=== PATIENT | male | born 1950 | race Caucasian/White ===

== ENCOUNTER 2018-06-02 02:50 | Emergency (ER) | payer MEDICARE, OTHER, SELFPAY ==
[2018-06-02] VITALS (9 sets, daily range): BP systolic 96–158; BP diastolic 56–104; PULSE 76–125; RESP 10–22; TEMP 36.5; O2SAT 93–99; BMI 32.5
--- NOTE | 2018-06-02 02:59 | ED_ITS ---
HPI - General Adult General Chief complaint: Arrhythmia/Palpitations Stated complaint: hiccuping 48 hrs, stomach bloated, heartburn Time Seen by Provider: 06/02/18 02:58 Source: patient Mode of arrival: ambulatory Limitations: no limitations History of Present Illness HPI narrative: Patient is a 68-year-old male here for evaluation of 48 hr the hiccups. Patient states that they have been constant for the past 48 hr. Recently he started benzoate and Cetrizine for a cough. Denies any chest pain, denies any shortness of breath, denies any palpitations, does have some abdominal fullness. No fevers. Never had anything like this before. Related Data Home Medications Medication Instructions Recorded Confirmed benzonatate 100 mg PO TID PRN 06/02/18 06/02/18 cetirizine 10 mg PO DAILY 06/02/18 06/02/18 codeine-guaifenesin 10 ml PO Q4-6H PRN 06/02/18 06/02/18 lisinopril 5 mg PO DAILY 06/02/18 06/02/18 ranitidine HCl [Acid Control 150 mg PO BID 06/02/18 06/02/18 (ranitidine)] sildenafil [Viagra] 100 mg PO DAILY PRN 06/02/18 06/02/18 Previous Rx's Medication Instructions Recorded gabapentin 100 mg PO BID #30 cap 06/02/18 Allergies Allergy/AdvReac Type Severity Reaction Status Date / Time No Known Drug Allergies Allergy Verified 06/02/18 03:23 Review of Systems Constitutional Denies fatigue, Denies fever(s) and Denies headache(s) ENT Ears, Nose, Mouth, and Throat: Denies vertigo, Denies dizziness and Denies headache(s) Cardiovascular Denies chest pain and Denies dyspnea Respiratory Denies dyspnea Gastrointestinal Gastrointestinal: Reports bloating Comments: Hiccups Musculoskeletal Denies myalgias and Denies arthralgias Integumentary/Breasts Denies rash Neurologic Denies vertigo, Denies dizziness and Denies headache(s) Endocrine Denies fatigue Hematologic/Lymphatic Denies easy bleeding and Denies easy bruising Allergic/Immunologic Denies urticaria PFSH Medical History Gastroesophageal reflux disease (Acute) Social History Smoking Status: Never smoker Social History Smoking Status: Never smoker Exam Initial Vital Signs Initial Vital Signs: Vital Signs Temperature 97.7 F 06/02/18 03:07 Pulse Rate 115 H 06/02/18 03:07 Respiratory Rate 20 06/02/18 03:07 Blood Pressure 126/104 H 06/02/18 03:07 Pulse Oximetry 96 06/02/18 03:07 Const General: cooperative, healthy appearing, comfortable, well developed, well groomed and No acute distress Orientation: alert, awake and oriented x3 HENMT Head: normal to inspection and normocephalic Resp Effort & Inspection: normal respiratory effort Auscultation: clear to auscultation bilaterally Cardio Rate: tachycardic Rhythm: abnormal rhythm irregularly irregular and with ectopic beats Pulses: radial pulses present GI Inspection: non-distended Palpation: soft, No firm and No tender Skin Lesions: no lesions Rashes: no rashes Neuro General: alert, awake and oriented x3 Cognition: normal cognition Speech: speech normal Extrem General: normal to inspection and capillary refill normal Psych Appearance: grossly normal and well kempt Course Orders Ordered: ED Orders 06/02/18 03:05 EKG-12 Lead Stat 06/02/18 03:15 B Type Natriuretic Peptide Stat Complete Blood Count AUTO DIFF Stat Comprehensive Metabolic Panel Stat Lipase Stat Magnesium Stat Phosphorous Stat Troponin I Stat 06/02/18 03:46 CT abdomen pelvis w con Stat CT angio chest PE protocol Stat Discontinued Medications Aspirin (Aspirin Chew) 324 mg PO NOW ONE Stop: 06/02/18 04:13 Last Admin: 06/02/18 04:26 Dose: 324 mg Sodium Chloride (Normal Saline 0.9%) 1,000 mls @ 1,000 mls/hr IV BOLUS ONE Stop: 06/02/18 04:46 Last Admin: 06/02/18 03:54 Dose: 1,000 mls/hr Metoprolol Tartrate (Lopressor) 25 mg PO NOW ONE Stop: 06/02/18 03:37 Last Admin: 06/02/18 03:40 Dose: 25 mg Vital Signs - 8 hr 06/02/18 03:07 06/02/18 03:19 06/02/18 03:32 Temperature 97.7 F Pulse Rate 115 H 115 H 125 H Respiratory Rate 20 22 18 Blood Pressure 126/104 H Blood Pressure [Right Arm] 147/102 H 158/71 H Pulse Oximetry 96 93 99 06/02/18 04:10 06/02/18 04:30 Temperature Pulse Rate 99 H 94 H Respiratory Rate 17 10 L Blood Pressure Blood Pressure [Right Arm] 128/85 108/56 L Pulse Oximetry 95 97 Medical Decision Making Lab Data Lab results reviewed: Yes I reviewed the patient's lab results. Result diagrams: 06/02/18 03:15 06/02/18 03:15 Lab Results 06/02/18 06/02/18 06/02/18 Range/Units 03:15 03:15 03:15 WBC 3.1 L (4.5-11.0) X10^3/uL RBC 4.57 (4.5-5.9) X10^6/uL Hgb 14.2 (13.5-17.5) g/dL Hct 42.4 (41-53) % MCV 92.8 (80-100) fL MCH 31.1 (26-34) PG MCHC 33.5 (30-36) % RDW 13.6 (11.6-14.8) % Plt Count 75 L (150-400) X10^3/uL Neut % (Auto) 54.3 (50-75) % Lymph % (Auto) 26.2 (25-40) % Forest % (Auto) 17.8 H (3-14) % Eos % (Auto) 0.9 L (2-4) % Baso % (Auto) 0.8 (0-2) % Neut # (Auto) 1700 (5169-2490) /uL Lymph # (Auto) 800 L (2738-1892) /uL Forest # (Auto) 600 (0-900) /uL Eos # (Auto) 0 (0-450) /uL Baso # (Auto) 0 (0-100) /uL Sodium 132 L (137-145) mmol/L Potassium 4.0 (3.4-5.1) mmol/L Chloride 95 L (98-107) mmol/L Carbon Dioxide 27 (22-32) mmol/L BUN 19 (9-20) mg/dL Creatinine 1.00 (0.66-1.25) mg/dL Estimated GFR > 60.0 (>60) mL/min BUN/Creatinine Ratio 19.0 (6-22) Glucose 104 (80-110) mg/dL Calcium 8.5 (8.4-10.2) mg/dL Phosphorus 3.6 (2.3-3.7) mg/dL Magnesium 1.8 (1.6-2.3) mg/dL Total Bilirubin 0.6 (0.2-1.3) mg/dL AST 44 (17-59) IU/L ALT 33 (21-72) IU/L Alkaline Phosphatase 51 (38-126) U/L Troponin I 0.419 H* (0.01-0.034) ng/mL B-Natriuretic Peptide 809 H (<100) Total Protein 6.5 (6.3-8.2) g/dL Albumin 3.8 (3.5-5.0) g/dL Globulin 2.7 (1.7-4.1) g/dL Albumin/Globulin Ratio 1.4 (1.0-2.8) Lipase 31 (23-300) U/L Imaging Data CT scan - chest: Radiologist's impression: No pulmonary embolism. Mild cardiomegaly, small right pleural effusion intralobar septal thickening in the bases likely edema. Previous granulomatous disease. Prominent right hilar lymph nodes. CT scan - abdomen: Radiologist's impression: No acute abnormality. Stool-filled colon with descending and sigmoid diverticulosis ECG Data Attestation: I personally reviewed and interpreted this ECG as follows: Prior ECG tracings: not available for review Interpretation: Sinus tachycardia Ventricular rate of 107 PVCs and PACs with [address] depressions V5 MDM Narrative Medical decision making narrative: Patient without any other symptoms except for hiccups. Patient's EKG is sinus rhythm with 3 different morphologies that are unrelated to his hiccups. I do not think that these are artifact. Discussed the case with Dr. Roland with Cardiology who stated that my description of the EKG is more likely ectopy then ventricular tachycardia. His heart rate does vary between 100-120 when he has runs of these ectopy. He does have an elevated BNP and also a elevated troponin. He was given an aspirin. He is not clinically in heart failure. Electrolytes unremarkable. CT scan negative for pulmonary embolism or acute abdominal pathology. I do suspect that his hiccups are secondary to irritation of the phrenic nerve from a potential cardiac etiology. In the setting of the elevated troponin and elevated BNP I do have concerns for a potential coronary event. I discussed this with the patient. Informed him that secondary to his labs and his presentation that we need to transfer him to a facility that has a contracts law professor further evaluation and potential echo and potential cardiac catheterization and trending of his troponins. I did discuss with him my concern that he could be having a heart attack and that is what is causing his hiccups. Patient stated that he did not want to be transferred. He expressed understanding that he may be having a heart attack and that going home could potentially lead to worsening symptoms or even . I informed him that the care that he needed to not be given at this hospital so we could not admit him here. He stated that he did not want to be admitted anywhere. He is alert oriented x3. In my opinion has capacity to make decisions. Has a GCS of 15. I contacted the patient's primary doctor and informed him of the patient's decision. The primary doctor stated that the patient could call his office later today to schedule appointment in the next couple days. I instructed the patient to do this. Will also send him home on gabapentin to see if this does not help his hiccups although once again I have a high concern that this may be a cardiac etiology. Patient signed [employer] paperwork. Nursing staff was in the room for these discussions. Patient stated that he did not want to be transferred because he is closing on her house on Saturday and did not want to miss this. Discharge Plan Departure Patient Disposition: Left Against Medical Advice Clinical Impression: Non-ST elevated myocardial infarction, Hiccups Activity Restrictions/Additional Instructions: Despite our discussions here in the emergency department about the fact that I think you're hiccups are being caused by a problem with your heart and a high concern that you are having a heart attack you decided you did not want to be transferred to a facility capable of handling this. I was able to contact your primary doctor and please call them when the office opens today for follow-up in the next day or two. If you change of mind you can return to the emergency department at any point to continue the workup. Prescriptions: New gabapentin 100 mg capsule 100 mg PO BID Qty: 30 RF: 0 No Action cetirizine 10 mg Tablet 10 mg PO DAILY RF: 0 sildenafil [Viagra] 100 mg Tablet 100 mg PO DAILY PRN (Reason: Sexual Activity) RF: 0 benzonatate 100 mg Capsule 100 mg PO TID PRN (Reason: Cough) RF: 0 ranitidine HCl [Acid Control (ranitidine)] 150 mg Tablet 150 mg PO BID RF: 0 lisinopril 10 mg Tablet 5 mg PO DAILY RF: 0 codeine-guaifenesin 10-100 mg/5 mL Liquid 10 ml PO Q4-6H PRN (Reason: Cough) RF: 0 Referrals: Sahil Bowser MD [Primary Care Provider] - Stand Alone Forms: Against Medical Advice
[2018-06-02 03:26] LABS: Add Manual Diff / Slide Review NO; Basophils Absolute Auto 0 /uL (0-100); Basophils Percent Auto 0.8 % (0-2); Eosinophils Absolute Auto 0 /uL (0-450); Eosinophils Percent Auto 0.9 % (2-4); Hematocrit 42.4 % (41-53); Hemoglobin 14.2 g/dL (13.5-17.5); Lymphocytes Absolute Auto 800 /uL (1100-4500); Lymphocytes Percent Auto 26.2 % (25-40); Mean Corpuscular HGB Conc 33.5 % (30-36); Mean Corpuscular Hemoglobin 31.1 PG (26-34); Mean Corpuscular Volume 92.8 fL (80-100); Monocytes Absolute Auto 600 /uL (0-900); Monocytes Percent Auto 17.8 % (3-14); Neutrophils Absolute Auto 1700 /uL (1500-7000); Neutrophils Percent Auto 54.3 % (50-75); Red Blood Cell Count 4.57 X10^6/uL (4.5-5.9); Red Cell Distribution Width 13.6 % (11.6-14.8)
[2018-06-02 03:31] LABS: Platelet Count 75 X10^3/uL (150-400); White Blood Cell Count 3.1 X10^3/uL (4.5-11.0)
--- NOTE | 2018-06-02 03:35 | PC.NURSE ---
Pt with frequent ectopy on ECG. SR-ST with bigeminal PVC, frequent runs of PVC's >10 beats. Pt with stable BP, denies chest pain. Still hiccuping. Dr Elder aware.
[2018-06-02 03:37] LABS: Alanine Aminotransferase 33 IU/L (21-72); Albumin 3.8 g/dL (3.5-5.0); Albumin Globulin Ratio 1.4 (1.0-2.8); Alkaline Phosphatase 51 U/L (38-126); Aspartate Aminotransferase 44 IU/L (17-59); Bilirubin Total 0.6 mg/dL (0.2-1.3); Blood Urea Nitrogen 19 mg/dL (9-20); Calcium 8.5 mg/dL (8.4-10.2); Carbon Dioxide 27 mmol/L (22-32); Chloride 95 mmol/L (98-107); Estimated Glomerular Filt Rate > 60.0 mL/min (>60); Globulin 2.7 g/dL (1.7-4.1); Glucose 104 mg/dL (80-110); Lipase 31 U/L (23-300); Sodium 132 mmol/L (137-145); Total Protein 6.5 g/dL (6.3-8.2)
[2018-06-02 03:38] LABS: Magnesium 1.8 mg/dL (1.6-2.3); Phosphorous 3.6 mg/dL (2.3-3.7)
[2018-06-02] MEDS: METOPROLOL IR 25 MG TABLET PO (03:40)
--- NOTE | 2018-06-02 03:46 | DI.CT.S_ITS ---
PROCEDURE: CT ABDOMEN PELVIS W CON INDICATIONS: abdominal pain TECHNIQUE: After the administration of intravenous contrast, 5 mm thick sections acquired from the diaphragm to the symphysis. 5 mm coronal and sagittal reformats were acquired. For radiation dose reduction, the following was used: automated exposure control, adjustment of mA and/or kV according to patient size. COMPARISON: [facility], CT, CT ANGIO CHEST PE PROTOCOL, 06/02/2018, 3:49. FINDINGS: Image quality: There are motion artifacts. ABDOMEN: Lung bases: Small right pleural effusion. There is right basilar atelectasis. Heart size is normal. Solid organs: Liver is normal in size and enhancement. Gallbladder is normal. Biliary system is non dilated. Pancreas enhances normally. Spleen is normal in size and enhancement. No adrenal nodules. Kidneys demonstrate normal size and enhancement, without hydronephrosis. Peritoneum and bowel: There are numerous colonic diverticula. Bowel loops demonstrate normal wall thickness and caliber. No free fluid or air. Nodes and vessels: No retroperitoneal or mesenteric adenopathy by size criteria. Aorta and inferior vena cava are normal in size. Miscellaneous: No ventral hernias. PELVIS: Genitourinary: Bladder wall thickness is normal. Enlarged prostate. Miscellaneous: No inguinal hernias or adenopathy. Bones: No suspicious bony lesions. No vertebral body compression fractures. IMPRESSION: 1. Diverticulosis without acute diverticulitis. 2. Small right pleural effusion with right basilar atelectasis. 3. Enlarged prostate. No significant discrepancy with the snuff container inspector radiology preliminary report. Dictated by: Ramana Paulino M.D. on 06/02/2018 at 8:09 Approved by: Ramana Paulino M.D. on 06/02/2018 at 8:14
--- NOTE | 2018-06-02 03:46 | DI.CT.S_ITS ---
PROCEDURE: CT ANGIO CHEST PE PROTOCOL INDICATIONS: Chest pain, shortness of breath, tachycardia TECHNIQUE: After the administration of intravenous contrast, 2 mm thick sections acquired from the pulmonary apices to the posterior costophrenic angles. 3-dimensional maximum intensity projection (MIP) coronal and sagittal reformats were then acquired through the thorax. For radiation dose reduction, the following was used: automated exposure control, adjustment of mA and/or kV according to patient size. COMPARISON: [facility], CR, XR CHEST 2 VIEWS, 03/17/2018, 9:37. FINDINGS: Image quality: Excellent. Pulmonary arteries: Pulmonary arteries are normal in size, and demonstrate no intraluminal filling defects to suggest central pulmonary embolism. Lungs and pleura: There is a bleb or pneumatocele in the left lower. There is a calcified granuloma in the right upper lobe. Mild subpleural septal thickening. There is a small right pleural effusion and left basilar atelectasis. No focal consolidation. No pneumothorax. Central and peripheral airways are patent. Mediastinum: Heart size is mildly increased, without pericardial effusion. Mildly enlarged right hilar and mediastinal lymph nodes are noted. For example, a 1.8 cm right hilar lymph node is noted. There is a 1.1 cm particular lymph node. Thoracic aorta is normal in caliber and enhancement. Esophagus is normal in caliber, without hiatal hernia. Bones and chest wall: No suspicious bony lesions. Ribs and thoracic spine appear intact throughout. Thyroid gland is normal. No axillary or supraclavicular adenopathy. Abdomen: Visualized upper abdominal solid organs appear normal in the early arterial phase of enhancement. IMPRESSION: 1. No evidence for central pulmonary embolism. 2. Mild cardiomegaly. 3. Mild interstitial thickening and small right pleural effusion suggest mild pulmonary congestion. 3. A calcified granuloma in the right middle lobe. 4. Mild right hilar and mediastinal lymphadenopathy. This finding is nonspecific and may be secondary to infectious, inflammatory or neoplastic etiology. Recommend clinical correlation and follow up. No significant discrepancy with the cafeteria supervisor radiology preliminary report. Dictated by: Ramana Paulino M.D. on 06/02/2018 at 7:32 Approved by: Ramana Paulino M.D. on 06/02/2018 at 8:58
[2018-06-02 03:47] LABS: B Type Natriuretic Peptide 809 (<100)
[2018-06-02] MEDS: SODIUM CHLORIDE 0.9% 1,000 ML 1000 ML IV (03:54)
[2018-06-02 04:09] LABS: HEMOLYSIS 26 (0-50)
[2018-06-02 04:10] LABS: Troponin I 0.419 ng/mL (0.01-0.034)
[2018-06-02] MEDS: ASPIRIN 81 MG TAB 324 MG PO (04:26)
--- NOTE | 2018-06-02 05:10 | PC.NURSE ---
Dr Elder at bedside discussing results with pt and encouraging transfer to [facility] for cardiac workup and concern for NSTEMI. Pt declining transfer and hospital admission.
--- NOTE | 2018-06-02 05:21 | PC.NURSE ---
provider explained risk for ama and patient stated he has a house closing on saturday and doesn't want to delay it. AMA papers signed.
--- NOTE | 2018-06-02 05:29 | PC.NURSE ---
answered call lainey, pt stated Im gonna throw up and I got really sweaty. Pt given emesis bag. Pt is visibly diaphoretic. HR on monitor at 60. Provider notified, ekg performed and given to provider.
[2018-06-02] MEDS: HEPARIN 5,000 UNIT/ML VIAL 5000 UNIT IV (05:58)
[2018-06-02] MEDS: HEPARIN DRIP 25,000 UNIT/500 ML IV.SOLN 20 UNIT IV (05:58)
[2018-06-02 06:19] LABS: INR 1.1 (0.9-1.3); Prothrombin Time 12.5 SECONDS (10.1-12.7)
== END 2018-06-02 07:23 | disposition short-term general hospital (02) ==
PROVIDERS: Emergency Provider Emergency Medicine; PCP Family Medicine
DX: I21.4 Non-ST elevation (NSTEMI) myocardial infarction (principal); R06.6 Hiccough
CPT/HCPCS: 36591; 71275; 74177; 80053; 83690; 83735; 83880; 84100; 84484; 85025; 85610; 93005; 96361; 96365; 96366; 96375; 99284; 99291; 99292; J1644; Q9967

== ENCOUNTER → 2020-01-12 11:12 | Outpatient (CLI) | payer OTHER, MEDICARE, SELFPAY ==
[2020-01-12 14:04] LABS: COVID19 -Nasal RAPID Negative (Negative)
== END ==
PROVIDERS: PCP Family Medicine; Visit Provider Physician Assistant
DX: Z01.812 Encounter for preprocedural laboratory examination (principal)
CPT/HCPCS: 87635

== ENCOUNTER 2020-01-15 11:48 | Day surgery (SDC) | payer OTHER, MEDICARE, SELFPAY ==
--- NOTE | 2020-01-15 | PATH_ITS ---
[facility] Accession Number: [id number] . 01 Material submitted: . colon - ASCENDING COLON POLYP 3MM . 01 Clinical history: . SDC . 02 Diagnosis: Ascending Colon, Polyp 3 mm, Biopsy: Colonic mucosa with no diagnostic abnormality consistent with polypoid redundancy. Additional levels were examined. Negative for dysplasia and malignancy. [facility] 01/20/2020 1601 Local . 02 Electronically signed: . Delicia Freedman MD, Pathologist NPI- [id number] . 01 Gross description: . The specimen is received in formalin, labeled ascending colon polyp, and consists of a 0.4 x 0.3 x 0.2 cm reyes fragment of soft tissue which is entirely submitted in cassette A1. ([id number]) /FRR 01/16/2020 1257 Local . 02 Microscopic: . Additional levels were examined. . 02 Pathologist provided ICD-10: K63.5 . 02 CPT . 206471 Performed at: 01 [facility] [address], [place], [place] [id number] MD Chapo Hemphill MD Phone: [phone] Performed at: 02 [facility] [address] [place], [place] [id number] MD Delicia Freemdan MD Phone: [phone]
--- NOTE | 2020-01-15 12:03 | P.HP_ITS ---
History of Present Illness History of Present Illness Date Patient Seen: 01/15/20 Chief complaint: SDC Narrative: 69 Years Old Male seen today for consideration of a screening colonoscopy. Last colonoscopy in 2013 indicated for screening and significant for extensive descending and sigmoid diverticulosis, polyp at 30 cm, and a prominent ileocecal valve. Pathology results not available at time of dictation. There have been no lower GI symptoms suggesting disease such as change in bowel habits, bleeding, abdominal pain or anemia. There's been no family history of colon cancer or colon polyps. Overall health issues have been stable, including no major cardiac events for at least 6 weeks. Past Medical History: RENAL INSUFFICIENCY Nonischemic cardiomyopathy Congestive heart failure, acute, systolic Syncope HYPOMAGNESEMIA HYPERTENSION, BENIGN ESSENTIAL OSTEOARTHRITIS DISC DISEASE, LUMBAR DISC, W/SCIATICA ESOPHAGEAL REFLUX BPH W/URINARY OBSTRUCTION ERECTILE DYSFUNCTION OBESITY (BMI <40 ALLERGIC RHINITIS COLON POLYPS, ADENOMATOUS, HX OF Past Surgical History: Appendectomy Tonsillectomy Colonoscopy R ankle surgery Family History: Father: age 75 - Heart Disease Mother: Siblings: Heart Disease Social History: Marital Status: - [employer] Occupation: Pursuing [employer] Education: 14 years 4 alcoholic drinks per week. Patient History Medical History (Updated 06/17/18 @ 00:00 by ) Gastroesophageal reflux disease (Acute) Family & Social History Tobacco & Substance use: Smoking Status Never smoker alcohol intake frequency a few times a week Substance Use Type does not use Meds Home Medications and Allergies Home Medications Medication Instructions Recorded Confirmed Type sildenafil [Viagra] 100 mg PO DAILY PRN 06/02/18 01/15/20 History Aspirin Childrens 81 mg PO DAILY 01/15/20 01/15/20 History amiodarone 200 mg PO DAILY 01/15/20 01/15/20 History lisinopril 20 mg PO DAILY 01/15/20 01/15/20 History metoprolol succinate 25 mg PO BID 01/15/20 01/15/20 History Allergies Allergy/AdvReac Type Severity Reaction Status Date / Time No Known Drug Allergies Allergy Verified 01/15/20 12:00 Review of Systems Review of Systems ROS: Yes All systems reviewed with the patient and are negative except as otherwise documented Exam Narrative Exam Narrative: GENERAL: Alert and oriented, appearing stated age and in no acute distress. HEENT: Head normocephalic/atraumatic. Pupils equal, round, and reactive to light and accomodation. Extraocular muscles intact. Tympanic membranes clear. Nasal mucosa moist, septum midline. Oral mucosa moist, no lesions. Neck soft and supple, no lymphadenopathy. LUNGS: Clear to ausculation bilaterally, no wheezes, rhonchi or rales. CV: Normal S1 and S2 with regular rate and rhythm, no audible murmurs, rubs or gallops. ABDOMEN: Soft, non-tender, non-distended, no organomegaly. Positive bowel sounds. EXTREMITIES: No clubbing, cyanosis, or edema. NEURO: Cranial nerves II through XII grossly intact, no focal deficits. PSYCH: Alert and oriented x 3. SKIN: No concerning lesions. Assessment & Plan Assessment & Plan narrative: 1. History of colon polyps 2. Diverticulosis 3. Screening for colon cancer Plan for colonoscopy. The nature and character of the procedure as well as anticipated results were discussed. The possibility of not completing the procedure was also discussed. Possible complications including aspiration pneumonia, bleeding, perforation and reaction to medications either for sedation or preparation and missed lesions were discussed. Questions were answered and proceeding to the colonoscopy was elected. Informed consent signed. I sincerely appreciate the referral allowing me to participate in this patient's care. Please contact me with any questions or concerns.
--- NOTE | 2020-01-15 12:07 | PM.OP.ENDO ---
Operative Date/Time/Diagnoses Date of procedure: 01/15/20 Procedure Notes Procedure in detail: ENDOSCOPIST: Gaby Dubon MD Sedation RN: Hiwot Ortiz RN Sedation start time: 1:07 p.m. Sedation end time: 3:30 p.m. PROCEDURE: Colonoscopy with cold biopsy INDICATIONS: 1. History of colon polyps 2. Diverticulosis 3. Screening for colon cancer MEDICATION: Levsin 0.125 mg sublingual, incremental doses of Versed and fentanyl until appropriate level sedation achieved. ASA CLASS: 2 CECAL WITHDRAWAL TIME: 14 minutes COMPLICATIONS: None. EXTENT OF PROCEDURE: Cecum. QUALITY OF PREP: Good with portions of liquid stool. PROCEDURE: Prior to insertion of the colonoscope, a digital rectal examination was accomplished with circumferential palpation of the distal rectal mucosa without significant findings being noted. The high-definition colonoscope was passed into the rectum in the usual fashion and advanced over to the cecum without difficulty. The ileocecal valve, appendiceal stoma, and medial wall all could be inspected and no abnormalities were seen. ASCENDING COLON: As the colonoscope was withdrawn, care was taken to expose and inspect the haustral folds and a 3 mm polyp was seen and removed with cold biopsy forceps. There was minor diverticulosis. HEPATIC FLEXURE: Minor diverticulosis, otherwise, normal, no polyps or other abnormalities. TRANSVERSE COLON: Moderate diverticulosis, otherwise, normal, no polyps or other abnormalities. DESCENDING COLON: Severe diverticulosis, otherwise normal, no polyps or other abnormalities. SIGMOID COLON: Severe diverticulosis, otherwise normal, no polyps or other abnormalities. RECTUM: Normal. J maneuver was produced. There was no significant perianal disease. The J maneuver was broken. The remainder of the rectum was inspected and there was no external hemorrhoid disease. The scope was withdrawn. IMPRESSION: 1. Ascending polyp x1, 3 mm, removed with cold biopsy forceps 2. Pancolonic diverticulosis PLAN: 1. Follow-up in clinic status post pathology results. The possibility of a missed lesion including a malignancy has been discussed with the patient previously. Potential alarm symptoms have been discussed and should be reported immediately.
[2020-01-15] MEDS: LACTATED RINGERS 1,000 ML 200 ML IV (12:20)
[2020-01-15] MEDS: HYOSCYAMINE 0.125 MG TABLET PO (12:22)
[2020-01-15 12:23] VITALS: BP 142/82; PULSE 72; RESP 12; TEMP 36.2; O2SAT 96; BMI 32.7
[2020-01-15] MEDS: MIDAZOLAM 5 MG/5 ML VIAL IV (13:10)
[2020-01-15] MEDS: fentaNYL 250 MCG/5 ML INJ IV (13:13)
[2020-01-15 13:40] VITALS: BP 121/73; PULSE 65; RESP 14; TEMP 37.2; O2SAT 96
[2020-01-15 13:45] VITALS: BP 112/62; PULSE 64; RESP 14; O2SAT 95
[2020-01-15 13:51] VITALS: BP 119/70; PULSE 62; RESP 20; TEMP 36.1; O2SAT 96
[2020-01-15 13:55] VITALS: BP 121/64; PULSE 64; RESP 14; O2SAT 96
--- NOTE | 2020-01-15 14:02 | SUR.PHASEII ---
Dr. Dubon came and talked to pt. Pt is very cooperative and denies any complaints . Pt states he feels good.
== END 2020-01-15 14:25 | disposition home or self-care (01) ==
PROVIDERS: PCP Student in an Organized Health Care Education/Training Program; Referring Provider Student in an Organized Health Care Education/Training Program; Visit Provider Student in an Organized Health Care Education/Training Program
PROC: 0DJD8ZZ Inspection of Lower Intestinal Tract, Via Natural or Artificial Opening Endoscopic (ICD-10-PCS; CPT 45378; principal; 2020-01-15 13:00)
DX: Z12.11 Encounter for screening for malignant neoplasm of colon (principal); Z86.010 Personal history of colon polyps; I10 Essential (primary) hypertension; I50.21 Acute systolic (congestive) heart failure; K57.30 Diverticulosis of large intestine without perforation or abscess without bleeding; K63.5 Polyp of colon
CPT/HCPCS: 45380; J2250; J3010